=== PATIENT | male | born 1995 | race Caucasian/White ===

== ENCOUNTER 2025-01-07 17:16 | Emergency (ER) | payer OTHER, SELFPAY ==
[2025-01-07 17:26] VITALS: BP 134/79; PULSE 110; RESP 20; TEMP 36.5; O2SAT 97; BMI 34.1
--- NOTE | 2025-01-07 17:36 | DI.RAD.S_ITS ---
PROCEDURE: XR HAND LT MIN 3V INDICATIONS: dorsal laceration from glass TECHNIQUE: 3 views of the hand(s) acquired. COMPARISON: None. FINDINGS: Bones: No fractures or dislocations. Carpal bones are normally aligned. No suspicious bony lesions. Soft tissues: No suspicious soft tissue calcifications. No radiopaque foreign body. IMPRESSION: No radiopaque foreign body. Dictated by: Kostas Martinez M.D. on 01/07/2025 at 17:58 Approved by: Kostas Martinez M.D. on 01/07/2025 at 17:59
--- NOTE | 2025-01-07 17:50 | ED.WOUNDLAC ---
HPI - Wound/Laceration <Yvette Mendoza PA-C - Last Filed: 01/07/25 19:38> General Chief Complaint: Wound/Laceration Stated Complaint: Lt hand wound , cut on glass Time Seen by Provider: 01/07/25 17:35 Source: patient Mode of arrival: Ambulatory History of Present Illness HPI narrative: Mr. Seth is a very pleasant 29-year-old male with no reported past medical history who presents to the emergency department for laceration to the back of his left hand that occurred from glass prior to arrival. Patient was working, drinking glasses were placed in the wrong spot, he went to move them and when broke cutting the back of his left hand. He is 2 very superficial lacerations and 2 deeper bleeding lacerations on the back of the left hand however bleeding has stopped at this time. He is full range of motion of the hand, no numbness tingling or weakening. No blood thinner use. Unsure of his last Tdap. Related Data Allergies Allergy/AdvReac Type Severity Reaction Status Date / Time Sulfa (Sulfonamide Allergy Vomiting Verified 01/07/25 17:26 Antibiotics) Review of Systems <BILL Foy Last Filed: 01/07/25 19:38> Review of Systems ROS Unobtainable: All systems reviewed & are unremarkable except as noted in HPI and below Exam <Yvette Mendoza PA-C - Last Filed: 01/07/25 19:38> Narrative Exam Narrative: GENERAL: 29 year old patient appears stated age. Well-developed patient, in no acute distress. HEAD: Atraumatic. Normocephalic. NECK: Trachea midline. Cervical ROM intact. CARDIOVASCULAR: Regular rate RESPIRATORY: ?Nonlabored respirations. ?Speaking in clear, full sentences. EXTREMITIES: On the dorsal aspect of the left hand, there are 2 approximately 2 cm linear lacerations with bleeding easily controlled with direct pressure. No obvious foreign bodies. Overlying the 1st metacarpal region there are superficial abrasions with no bleeding. Patient has full range of motion of the left hand, strong radial pulse, brisk capillary refill and strength and sensation intact in the distribution of the median, radial, ulnar nerves. NEURO: AOx3. ?Clear speech. ?Moves all 4 extremities appropriately. SKIN: Warm, dry. Dorsal left hand wounds described above. Initial Vital Signs Initial Vital Signs: Vital Signs Temperature 97.7 F 01/07/25 17:26 Pulse Rate 110 H 01/07/25 17:26 Respiratory Rate 20 01/07/25 17:26 Blood Pressure 134/79 01/07/25 17:26 Pulse Oximetry 97 01/07/25 17:26 Oxygen Delivery Method Room Air 01/07/25 17:26 <Aliza Ayers DO - Last Filed: 01/08/25 09:01> Initial Vital Signs Initial Vital Signs: Vital Signs Temperature 97.7 F 01/07/25 17:26 Pulse Rate 110 H 01/07/25 17:26 Respiratory Rate 20 01/07/25 17:26 Blood Pressure 134/79 01/07/25 17:26 Pulse Oximetry 97 01/07/25 17:26 Oxygen Delivery Method Room Air 01/07/25 17:26 Procedures <Yvette Mendoza PA-C - Last Filed: 01/07/25 19:38> Laceration Repair Laceration 1: Site: hand Side (If applicable): left Size (cm): 2 Description: linear Depth: simple, single layer Pre-repair: wound explored, irrigated extensively and deep structures intact Skin layer closed with: steri-strips Course <BILL Foy Last Filed: 01/07/25 19:38> Orders Ordered: Discontinued Medications Diphtheria/Tetanus/Acell Pertussis (Tet,Diph,Pertuss(Acell),Vac/Pf 0.5 Ml Syringe) 0.5 ml IM .ONCE ONE Stop: 01/07/25 17:59 Last Admin: 01/07/25 18:07 Dose: 0.5 ml Documented By: JOSE DANIEL Vital Signs Vital signs: Vital Signs - 8 hr 01/07/25 17:26 Temperature 97.7 F Pulse Rate 110 H Respiratory Rate 20 Blood Pressure 134/79 Pulse Oximetry 97 Oxygen Delivery Method Room Air <DO Serina Castellon Last Filed: 01/08/25 09:01> Orders Ordered: Discontinued Medications Diphtheria/Tetanus/Acell Pertussis (Tet,Diph,Pertuss(Acell),Vac/Pf 0.5 Ml Syringe) 0.5 ml IM .ONCE ONE Stop: 01/07/25 17:59 Last Admin: 01/07/25 18:07 Dose: 0.5 ml Documented By: RL Vital Signs Vital signs: Vital Signs - 8 hr 01/07/25 17:26 Temperature 97.7 F Pulse Rate 110 H Respiratory Rate 20 Blood Pressure 134/79 Pulse Oximetry 97 Oxygen Delivery Method Room Air MDM - Wound/Laceration <Yvette Mendoza PA-C - Last Filed: 01/07/25 19:38> Imaging Data left Hand X-Ray: Radiologist's Impression: PROCEDURE: XR HAND LT MIN 3V INDICATIONS: dorsal laceration from glass TECHNIQUE: 3 views of the hand(s) acquired. COMPARISON: None. FINDINGS: Bones: No fractures or dislocations. Carpal bones are normally aligned. No suspicious bony lesions. Soft tissues: No suspicious soft tissue calcifications. No radiopaque foreign body. IMPRESSION: No radiopaque foreign body. Dictated by: Kostas Martinez M.D. on 01/07/2025 at 17:58 Approved by: Kostas Martinez M.D. on 01/07/2025 at 17:59 [facility] Narrative Medical decision making narrative: 29-year-old male with no reported past medical history who presents to the emergency department for laceration to the back of his left hand that occurred from glass prior to arrival. Differential diagnosis includes but isn't limited to laceration, abrasion, foreign body, etc. On exam patient is in no acute distress, nontoxic-appearing, left hand neurovascularly intact. There are 2 superficial linear lacerations in the dorsal left hand and some abrasions. No obvious foreign body. Patient's hand has full range of motion. X-ray obtained of left hand revealing no radiopaque foreign bodies. After shared decision-making with the patient, the hand was soaked in warm water and Hibiclens, the wound was then irrigated extensively with greater than 1 L of normal saline, cleansed with Betadine, and repaired using Steri-Strips as the wound was linear and well approximated and not overlying the joint. A nonadherent dressing was then applied. Discussed proper wound care with the patient and ED return precautions. He verbalized understanding of all information is agreeable to the plan. He is stable for discharge home. Discharge Plan Departure Patient Disposition: Home Clinical Impression: Laceration of hand, left Qualifiers: Encounter type: initial encounter Foreign body presence: without foreign body Qualified Code(s): S61.412A - Laceration without foreign body of left hand, initial encounter Instructions: DI for Laceration Repair-Skin Closure Strips Activity Restrictions/Additional Instructions: Dear Mr. Seth, Thank you for coming to the emergency department. Today you had 2 lacerations to your left hand. I have placed Steri-Strips which are skin tape strips to closure wound. These do not need to be removed but will come off on their own in about 1-2 weeks. Please keep the dressing on your wound clean, dry, and intact for the next 24 hours. After this time, you may remove the dressing and gently clean the wound with soap and water, then pat dry. Keep the wound clean and covered. Avoid soaking the wound in any water such as a bath, pool, or the ocean. If you develop any signs of wound infection such as increased redness, pus drainage, streaking redness, or fevers, please return to the ER immediately for evaluation. Once sutures are removed and the wound has healed, apply sunscreen daily to reduce the appearance of scars. We updated your tetanus shot today. Please follow up with your primary care doctor within the next 2-3 days for ER follow-up. (If you do not have a PCP you can call [phone]. ?to schedule an appointment with an [facility] Primary Care Provider) IF YOU DEVELOP ANY NEW OR WORSENING SYMPTOMS, RETURN TO THE ER! Please read the attached instructions, they highlight more specific treatments and interventions for you at home. Thank you for letting me participate in your care, Yvette Mendoza PA-C Stand Alone Forms: Patient Portal/API, Work Release Note ED Sign-out <Aliza Ayers DO - Last Filed: 01/08/25 09:01> Cosign ED Attending Martir Attestation: I was immediately available in the department for consultation.
[2025-01-07] MEDS: TET,DIPH,PERTUSS(ACELL),VAC/PF 0.5 ML SYRINGE IM (18:07)
== END 2025-01-07 19:02 | disposition home or self-care (01) ==
PROVIDERS: Emergency Provider Physician Assistant
DX: S61.412A Laceration without foreign body of left hand, initial encounter (principal); W25.XXXA Contact with sharp glass, initial encounter; Z23 Encounter for immunization
CPT/HCPCS: 73130; 90471; 99283; 90715